=== PATIENT | male | born 1990 | race Caucasian/White ===

== ENCOUNTER 2017-12-16 10:20 | Emergency (ER) | payer OTHER ==
[~2017-12-16] VITALS: Ht 180.3 cm; Wt 145.8 kg
[2017-12-16 10:26] VITALS: TEMP 36.9; Ht 180.3 cm; Wt 145.8 kg
[2017-12-16] MEDS ORDERED: IBUPROFEN 800 MG TAB PO STA (10:43)
--- NOTE | 2017-12-16 11:49 | DIAGNOSTIC IMAGING REPORT ---
L KNEE 1 OR 2 VIEWS ROUTINE CLINICAL HISTORY: Knee pain pain COMPARISON: None. DISCUSSION: The bones and joint spaces appear intact. There is no evidence of fracture, dislocation or bony disease. There is no evidence for soft tissue swelling. IMPRESSION: Negative study. The above report was generated using voice recognition software. It may contain grammatical, syntax or spelling errors. Electronically signed by: Fan Allan M.D. 12/16/2017 11:48 AM Dictated Date/Time: 12/16/2017 11:47 AM
--- NOTE | 2017-12-16 12:04 | EMERGENCY ROOM VISIT NOTE ---
ED Visit Note First contact with patient: 10:38 CHIEF COMPLAINT: Left knee pain HISTORY OF PRESENT ILLNESS: This 27-year-old male presents to ER with chief complaint of left knee pain. The patient denies any known injury to the left knee. The patient states that yesterday while he was at work he could feel it click with movement. He states it was achy but was tolerable. This morning when he got up he has increased pain with bending and could barely get out of bed. The patient denies any redness. The patient denies any giving out or locking of the knee. The patient has seen [facility] in the past for a prior staph infection of the left knee. REVIEW OF SYSTEMS: 6 system review was performed and was negative unless stated otherwise in history of present illness. PMH: The patient is healthy; staph infection left knee SOCIAL HISTORY: Patient admits to chew tobacco but denies any alcohol use. PHYSICAL EXAM: Vital Signs: Were reviewed reviewed Nurse's notes. GENERAL: 27- year-old white male appears in no acute distress. MENTAL STATUS: Alert, oriented, and cooperative. LEFT KNEE: No gross bony deformity noted. No erythema noted. There is some edema noted as compared to the right knee. Patient is tender to palpation over the lateral knee superior to the knee joint. He has full range of motion with pain elicited with flexion. No Joint effusion is appreciated. There is no ligamentous instability. The skin is normal and intact. EMERGENCY DEPARTMENT COURSE: The patient was evaluated. The patient was given ibuprofen 800 mg p.o. for pain. X-ray of the left knee was ordered interpreted by the radiologist and myself. DIAGNOSTICS:L KNEE 1 OR 2 VIEWS ROUTINE CLINICAL HISTORY: Knee pain pain COMPARISON: None. DISCUSSION: The bones and joint spaces appear intact. There is no evidence of fracture, dislocation or bony disease. There is no evidence for soft tissue swelling. IMPRESSION: Negative study. The above report was generated using voice recognition software. It may contain grammatical, syntax or spelling errors. Electronically signed by: Fan Allan M.D. 12/16/2017 11:48 AM The patient was informed of the findings. The patient was offered a knee immobilizer or crutches. The patient declined. He stated that he would get a knee brace [id number]. The patient was discharged home in stable condition. DIAGNOSIS: Left knee pain DISCHARGE INSTRUCTIONS: Ibuprofen 800 mg every 6 hours with food for pain. Ice and elevation as much as possible over the next 24 hours. Wear knee brace until evaluated by orthopedics. Call if Dr. Gruber for follow-up appointment. Current/Historical Medications No Active Prescriptions or Reported Meds Allergies Coded Allergies: No Known Allergies (Unverified , 12/16/17) Vital Signs Date Time Temp Pulse Resp B/P (MAP) Pulse Ox O2 Delivery O2 Flow Rate FiO2 12/16/17 10:26 36.9 112 17 164/104 98 Room Air Medications Administered Medications (Trade) Dose Ordered Sig/Valerie Route Start Time Stop Time Status Last Admin Dose Admin Ibuprofen (Motrin Tab) 800 mg NOW STAT PO 12/16/17 10:43 12/16/17 10:44 DC 12/16/17 10:43 800 MG Departure Information Prescriptions No Active Prescriptions or Reported Meds Patient Instructions My [facility]
[2017-12-16 12:09] VITALS: BP 141/72; PULSE 88; O2SAT 98
== END 2017-12-16 12:11 | disposition home or self-care (01) ==
LOC: C.EDB 10:22
DX: M25.562 Pain in left knee (principal); Z72.0 Tobacco use

== ENCOUNTER → 2017-12-16 | Outpatient (CLI) | payer OTHER | END | disposition home or self-care (01) | LOC: C.RDSM 13:32 | PROVIDERS: ATTEND Orthopaedic Surgery | DX: R52 Pain, unspecified (principal) ==